=== PATIENT | female | born 1980 | race Caucasian/White ===

== ENCOUNTER 2023-01-23 18:12 | Emergency (ER) | payer MEDICAID, OTHER ==
[~2023-01-23] VITALS: Ht 162.6 cm; Wt 81.6 kg
[2023-01-23] MEDS ORDERED: AMOX-430 PO (19:25)
[2023-01-23] MEDS ORDERED: IBUP-1957 PO (19:25)
[2023-01-23] MEDS ORDERED: OFLO5DRO5 LEFT EAR (19:25)
--- NOTE | 2023-01-23 19:25 | NUR ---
Pt is noted alert, responsive as report is received from the off going nurse that Pt came from Home C/O Left Ear pain and discaharge since Yesterday but Denies any Trauma. Pt care continue as she is been monitor.
--- NOTE | 2023-01-23 20:17 | NUR ---
Pt is noted off the unit as she is been discharge to Home with all discharge instructions given with no S/S off distress or C/O off pain.
[2023-01-23 20:18] VITALS: BP 132/84
== END 2023-01-23 20:20 | disposition home or self-care (01) ==
LOC: ER 18:15
DX: H60.92 Unspecified otitis externa, left ear (principal); H66.92 Otitis media, unspecified, left ear; H72.92 Unspecified perforation of tympanic membrane, left ear